=== PATIENT | male | born 1965 | race Caucasian/White ===

== ENCOUNTER 2022-05-11 08:51 | Emergency (ER) | payer OTHER, SELFPAY ==
[2022-05-11 08:58] VITALS: BP 173/60; PULSE 100; RESP 20; TEMP 37.3; O2SAT 98
--- NOTE | 2022-05-11 09:09 | ED.URI ---
HPI - URI/Sore Throat General Chief Complaint: Upper Respiratory Infection Stated Complaint: ears throat and sinus cough Source: patient and RN notes reviewed History of Present Illness HPI Narrative: 56-year-old male presents urgent care with complaints of a sore throat and congestion x2 days. Patient reports postnasal drip. Denies any fevers, chills, vomiting, diarrhea, chest pain, shortness of breath. Some parts of this dictation were generated by voice recognition software and may contain typographical and/or grammatical inaccuracies. Related Data Home Medications Medication Instructions Recorded Confirmed amitriptyline 10 mg tablet 10 mg PO DAILY 05/11/22 05/11/22 amlodipine 10 mg tablet 10 mg PO DAILY 05/11/22 05/11/22 duloxetine 60 mg capsule,delayed 60 mg PO DAILY 05/11/22 05/11/22 release hydralazine 25 mg tablet 25 mg PO DAILY 05/11/22 05/11/22 insulin aspart U-100 100 unit/mL 10 unit subcut DAILY 05/11/22 05/11/22 (3 mL) subcutaneous pen (Novolog FlexPen U-100 Insulin aspart) insulin glargine 100 unit/mL (3 42 unit subcut QHS 05/11/22 05/11/22 mL) subcutaneous pen (Lantus Solostar U-100 Insulin) lisinopril 40 mg tablet 40 mg PO DAILY 05/11/22 05/11/22 metoprolol succinate 100 mg 100 mg PO DAILY 05/11/22 05/11/22 tablet,extended release 24 hr warfarin 6 mg tablet 6 mg PO DAILY 05/11/22 05/11/22 Allergies Allergy/AdvReac Type Severity Reaction Status Date / Time No Known Allergies Allergy Verified 05/11/22 09:15 Review of Systems Review of Systems: Pertinent positives per HPI. Denies any fevers, chills, vomiting, diarrhea, chest pain, or shortness of breath. PMFSH Comments At the time of my signature, I reviewed and agree with the nursing past medical, surgical, social, and family history. There is no relevant family history pertinent to the patient complaint. Exam Narrative: GENERAL: This is a well-nourished, well-developed patient, in no apparent distress. HEAD: normocephalic, atraumatic. EYES: PERRL. Sclera clear/white. Vision is grossly intact. EARS: External ears normal, auditory canals clear and without drainage, TMs normal without perforation. Hearing grossly intact. NOSE: External nose normal with no obvious nasal discharge, nares without redness, no rhinorrhea. THROAT: Mucous membranes moist, posterior pharynx erythemic. No exudate noted. NECK: Neck supple, non-tender without lymphadenopathy, masses or thyromegaly. CARDIOVASCULAR: Regular rate and rhythm without murmurs, gallops, or rubs. RESPIRATORY: Clear to auscultation. Breath sounds equal bilaterally. No wheezes, rales, or rhonchi. GASTROINTESTINAL: Abdomen soft, non-tender, nondistended. Bowel sounds are active. No hepato-splenomegaly, or palpable masses. No guarding. SKIN: warm, intact with no suspicious lesions or rash, good texture and turgor. NEURO: awake, alert, and oriented to person, place and time. There were no obvious focal neurologic abnormalities. Course Course Level of Care: Express Care Visit Vital Signs Vital signs: Vital Signs Temperature 99.1 F 05/11/22 08:58 Pulse Rate 100 05/11/22 08:58 Respiratory Rate 20 05/11/22 08:58 Blood Pressure 173/60 H 05/11/22 08:58 Pulse Oximetry 98 05/11/22 08:58 Oxygen Delivery Room Air 05/11/22 08:58 Temperature 99.1 F 05/11/22 08:58 Pulse Rate 100 05/11/22 08:58 Respiratory Rate 20 05/11/22 08:58 Blood Pressure 173/60 H 05/11/22 08:58 Pulse Oximetry 98 05/11/22 08:58 Oxygen Delivery Room Air 05/11/22 08:58 Reviewed MDM - URI/Sore Throat MDM Narrative Medical decision making narrative: After 24 hours on antibiotics throw tooth brush away and start using a new one. Increase your Vitamin C. Do not share drinks. Take Motrin alternating with Tylenol for pain and/or fever alternating every 4 hours. Increase fluids, avoid caffeine. Take a probiotic daily or eat a low sugar yogurt while taking the antibiotic. Follow up with
== END 2022-05-11 09:25 | disposition home or self-care (01) ==
PROVIDERS: Emergency Provider Nurse Practitioner Family
DX: J02.0 Streptococcal pharyngitis (principal); Z79.4 Long term (current) use of insulin; Z79.01 Long term (current) use of anticoagulants
CPT/HCPCS: 87880; 99213; G0463

== ENCOUNTER 2022-06-19 11:52 | Emergency (ER) | payer MEDICARE, MEDICAID, SELFPAY ==
[2022-06-19 12:05] VITALS: BP 166/77; PULSE 88; RESP 18; TEMP 36.5; O2SAT 97
[2022-06-19 12:07] VITALS: BP 166/77; PULSE 88; RESP 18; TEMP 36.5; O2SAT 97
--- NOTE | 2022-06-19 12:08 | ED.URI ---
HPI - URI/Sore Throat General Chief Complaint: Upper Respiratory Infection Stated Complaint: Sore Throat/Ear Pain Time Seen by Provider: 06/19/22 12:08 Source: patient and RN notes reviewed History of Present Illness HPI Narrative: Patient is a 56-year-old male who presents to urgent care with complaints of rhinorrhea, sore throat, left ear pain. Patient states that it started 2 days ago. States that he was treated for strep 2 weeks ago and then symptoms return. Denies any known fever, nausea or vomiting. No other acute complaints. No acute distress noted. Patient aware of the plan of care. Some parts of this dictation were generated by voice recognition software and may contain typographical and/or grammatical inaccuracies. Related Data Home Medications Medication Instructions Recorded Confirmed amitriptyline 10 mg tablet 10 mg PO DAILY 05/11/22 05/11/22 amlodipine 10 mg tablet 10 mg PO DAILY 05/11/22 05/11/22 duloxetine 60 mg capsule,delayed 60 mg PO DAILY 05/11/22 05/11/22 release hydralazine 25 mg tablet 25 mg PO DAILY 05/11/22 05/11/22 insulin aspart U-100 100 unit/mL 10 unit subcut DAILY 05/11/22 05/11/22 (3 mL) subcutaneous pen (Novolog FlexPen U-100 Insulin aspart) insulin glargine 100 unit/mL (3 42 unit subcut QHS 05/11/22 05/11/22 mL) subcutaneous pen (Lantus Solostar U-100 Insulin) lisinopril 40 mg tablet 40 mg PO DAILY 05/11/22 05/11/22 metoprolol succinate 100 mg 100 mg PO DAILY 05/11/22 05/11/22 tablet,extended release 24 hr warfarin 6 mg tablet 6 mg PO DAILY 05/11/22 05/11/22 amitriptyline 10 mg tablet mg 06/19/22 atorvastatin 40 mg tablet mg 06/19/22 ticagrelor 90 mg tablet (Brilinta) mg 06/19/22 Allergies Allergy/AdvReac Type Severity Reaction Status Date / Time sulfamethoxazole Allergy Unknown Verified 06/19/22 12:05 [From Bactrim] trimethoprim [From Bactrim] Allergy Unknown Verified 06/19/22 12:05 Review of Systems Review of Systems: CONSTITUTIONAL: Denies fever, chills, or sweats. EYES: Denies visual changes, redness, or discharge. ENT: Reports of left otalgia, sore throat postnasal drainage and rhinorrhea CARDIOVASCULAR: Denies chest pain, palpitations, or edema. RESPIRATORY: Denies cough or dyspnea. GASTROINTESTINAL: Denies abdominal pain, nausea, vomiting, or diarrhea. GENITOURINARY: Denies dysuria or hematuria. SKIN: Denies rash or itching. MUSCULOSKELETAL: Denies back pain, joint pain, or myalgia. NEUROLOGIC: Denies headache, numbness, or weakness. All other systems reviewed are negative, except as documented in HPI. PMFSH Comments At the time of my signature, I reviewed and agree with the nursing past medical, surgical, social, and family history. There is no relevant family history pertinent to the patient complaint. Exam Narrative: GENERAL: This is a well-nourished, well-developed patient, in no apparent distress. HEAD: normocephalic, atraumatic. EYES: PERRL. Sclera clear/white. Vision is grossly intact. EARS: External ears normal, right auditory canals clear and without drainage, thick yellow drainage with retracted TM on the left. Right TM normal without perforation. Hearing grossly intact. NOSE: External nose normal with no obvious nasal discharge, nares without redness, no rhinorrhea. THROAT: Mucous membranes moist, posterior pharynx clear. Moderate postnasal drainage NECK: Neck supple, RESPIRATORY: Clear to auscultation. Breath sounds equal bilaterally. No wheezes, rales, or rhonchi. SKIN: warm, intact with no suspicious lesions or rash, good texture and turgor. NEURO: awake, alert, and oriented to person, place and time. There were no obvious focal neurologic abnormalities. EXTREMITIES: No clubbing, cyanosis, or edema. Course Course Level of Care: Express Care Visit Vital Signs Vital signs: Vital Signs Temperature 97.7 F 06/19/22 12:05 Pulse Rate 88 06/19/22 12:05 Respiratory Rate 18 06/19/22 12:05 Blood Pressure 166/77 H
== END 2022-06-19 12:25 | disposition home or self-care (01) ==
PROVIDERS: Emergency Provider Nurse Practitioner Family
DX: H66.92 Otitis media, unspecified, left ear (principal); E11.9 Type 2 diabetes mellitus without complications; Z79.4 Long term (current) use of insulin; I25.2 Old myocardial infarction; Z95.5 Presence of coronary angioplasty implant and graft; Z79.01 Long term (current) use of anticoagulants
CPT/HCPCS: 99213; G0463